=== PATIENT | male | born 1965 | race Caucasian/White ===

== ENCOUNTER 2018-01-25 12:24 | Emergency (ER) | payer BC ==
[2018-01-25 12:56] VITALS: BP 143/99
--- NOTE | 2018-01-25 13:06 | UC ---
Throat Pain/Nasal [place] HPI - HPI Summary HPI Summary: Patient urgent care today with chief complaint of sinus allergy symptoms. Patient has had a long history of allergies decided last year not continue his allergy shots. In years past he's needed Medrol Dosepak to conquer worsening allergies this time year. Patient is taking Claritin as needed does not have a current prescription for Flonase and is not using any Zaditor or Patanol for eyes. - History of Current Complaint Hx Obtained From: Patient Onset/Duration: Gradual Onset, Lasting Weeks - 2 Pain Intensity: 8 Pain Scale Used: 0-10 Numeric Cough: None Associated Signs & Symptoms: Positive: Sinus Discomfort, Nasal Discharge Related History: Seasonal Allergies <Josey Rutledge - Last Filed: 01/25/18 13:13> <Jessica Juarez - Last Filed: 01/27/18 07:28> - History of Current Complaint Chief Complaint: UCGeneralIllness Stated Complaint: ALLERGIES Time Seen by Provider: 01/25/18 12:53 - Allergies/Home Medications Allergies/Adverse Reactions: Allergies Allergy/AdvReac Type Severity Reaction Status Date / Time environmental Allergy Eyes Uncoded 01/25/18 12:54 Itchy/Swollen/Red/Watery PMH/Surg Hx/FS Hx/Imm Hx Previously Healthy: No GI/ History: Gastroesophageal Reflux - Surgical History Surgical History: Yes Surgery Procedure, Year, and Place: left knee 2003- Dr. Romero. RIGHT HAND SX - Family History Known Family History: Positive: None - Social History Occupation: Employed Full-time Lives: With Family Alcohol Use: None Substance Use Type: None Smoking Status (MU): Never Smoked Tobacco <Josey Rutledge - Last Filed: 01/25/18 13:13> Review of Systems Constitutional: Negative Skin: Negative Eyes: Drainage, Eye Redness ENT: Nasal Discharge, Sinus Congestion, Sinus Pain/Tenderness Respiratory: Negative Cardiovascular: Negative Gastrointestinal: Negative Genitourinary: Negative Motor: Negative Neurovascular: Negative Musculoskeletal: Negative Neurological: Negative Psychological: Negative Is Patient Immunocompromised?: No All Other Systems Reviewed And Are Negative: Yes <Josey Rutledge - Last Filed: 01/25/18 13:13> Physical Exam Triage Information Reviewed: Yes Appearance: No Pain Distress, Well-Nourished, Ill-Appearing - mild Vital Signs: Initial Vital Signs Temp 98.1 F 06/09/18 12:48 Pulse 108 01/25/18 12:48 Resp 18 01/25/18 12:48 BP 143/99 01/25/18 12:48 Pulse Ox 100 01/25/18 12:48 Vital Signs Reviewed: Yes Eye Exam: Normal Eyes: Positive: Conjunctiva Clear ENT Exam: Normal ENT: Positive: Normal ENT inspection, Hearing grossly normal, Pharynx normal, Nasal congestion, Nasal drainage, TMs normal, Sinus tenderness, Uvula midline. Negative: Tonsillar swelling, Tonsillar exudate, Trismus, Muffled voice, Hoarse voice Dental Exam: Normal Neck exam: Normal Neck: Positive: Supple, Nontender Respiratory Exam: Normal Respiratory: Positive: Chest non-tender, Lungs clear, Normal breath sounds, No respiratory distress, No accessory muscle use Cardiovascular Exam: Normal Cardiovascular: Positive: RRR, No Murmur, Pulses Normal, Brisk Capillary Refill Musculoskeletal Exam: Normal Musculoskeletal: Positive: Strength Intact, ROM Intact, No Edema Neurological Exam: Normal Neurological: Positive: Alert, Muscle Tone Normal Psychological Exam: Normal Skin Exam: Normal <Josey Rutledge - Last Filed: 01/25/18 13:13> Vital Signs: Initial Vital Signs Temp 98.1 F 01/25/18 12:48 Pulse 108 01/25/18 12:48 Resp 18 01/25/18 12:48 BP 143/99 01/25/18 12:48 Pulse Ox 100 01/25/18 12:48 <Jessica Juarez - Last Filed: 01/27/18 07:28> Throat Pain/Nasal Course/Dx - Course Assessment/Plan: Education provided to patient regarding why Medrol Dosepak is not a good first line treatment for environmental allergies. 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 - Differential Dx/Diagnosis Provider Diagnoses: Environmental allergies, allergic conjuctivitis, elevated blood pressure in poor control <Josey Rutledge - Last Filed: 01/25/18 13:13> Discharge - Sign-Out/Discharge Documenting (check all that apply): Discharge/Admit/Transfer - Billing Disposition and Condition Condition: STABLE Disposition: Home <Josey Rutledge - Last Filed: 01/25/18 13:13> - Billing Disposition and Condition Condition: STABLE Disposition: Home <Jessica Juarez - Last Filed: 01/27/18 07:28> - Discharge Plan Condition: Stable Disposition: HOME Prescriptions: Fluticasone NASAL SPRAY 50MCG* [Flonase NASAL SPRAY 50MCG*] 2 spray BOTH NARES DAILY #1 btl Ketotifen Fumarate [Zaditor] 0.025 % OP BID PRN #1 georgina PRN Reason: allergic eye symptoms Patient Education Materials: How to Use Eye Drops (ED), Allergic Rhinitis (ED) , Conjunctivitis (ED), How to Use Nasal [place] (ED), Postnasal Drip (DC) Referrals: Chika Watson MD [Primary Care Provider] - 2 Weeks Attestation Statement User Type: Provider <Jessica Juarez - Last Filed: 01/27/18 07:28>
== END 2018-01-25 13:20 | disposition home or self-care (01) ==
LOC: UCCORT 12:24
DX: J30.2 Other seasonal allergic rhinitis (principal); H10.10 Acute atopic conjunctivitis, unspecified eye; R03.0 Elevated blood-pressure reading, without diagnosis of hypertension
CPT/HCPCS: 99212; G0463

== ENCOUNTER 2020-04-01 12:45 | Observation (INO) ==
[~2020-04-01 12:45] MED LIST: Buffered Lidocaine 1% SYRIN 1 ml INTRADERM ONE; Lactated Ringers 1000 ml BAG 1,000 ML IV SCH
[2020-04-01] MEDS ORDERED: ceFAZolin 2 GM PREMIX 2 GM/50 ML BAG ONE (12:59)
[2020-04-01] MEDS ORDERED: Buffered Lidocaine 1% SYRIN 1 ml INTRADERM ONE (12:59)
[2020-04-01] MEDS ORDERED: Midazolam 5 mg/5 ml VIAL 1 mg/ml 5 ml VIAL (5 mg) ONE (13:07)
[2020-04-01] MEDS ORDERED: fentaNYL 100 mcg/2 ml 50 MCG/ML VIAL ONE ×2 (13:07→14:41)
[2020-04-01] MEDS ORDERED: Propofol 10 MG/ML 20 ML BTL ONE (13:11)
[2020-04-01] MEDS ORDERED: Lidocaine 2% PF 5 ML VIAL ONE (13:11)
[2020-04-01] MEDS ORDERED: HYDROmorphone 1 MG/1 ML SYRINGE IV PRN (14:21)
[2020-04-01] MEDS ORDERED: Naloxone 0.4 mg VIAL 0.4 mg/ml 1 ml VIAL IV PRN (14:21)
[2020-04-01] MEDS ORDERED: Prochlorperazine 5 mg/ml 2 ml VIAL (10 mg) IV PRN (14:21)
[2020-04-01] MEDS ORDERED: Propofol 10 mg/ml 100 ML BTL 100 ML ONE (14:37)
[2020-04-01] MEDS ORDERED: ROPIVACAINE 5 MG/ML 30 ML BTL (0.5%) ONE ×3 (14:41→15:19)
[2020-04-01] MEDS ORDERED: Bupivacaine 0.5% SDV PF 30ML VIAL ONE ×2 (15:20→15:42)
[2020-04-01] MEDS ORDERED: Magnesium Hydroxide LIQ 30 ML UDC PO PRN (16:36)
[2020-04-01] MEDS ORDERED: Lactulose 30 ml UDC PO PRN (16:36)
[2020-04-01] MEDS ORDERED: Ondansetron ODT 4 mg TAB 4 MG TAB PO PRN (16:36)
[2020-04-01] MEDS ORDERED: Ondansetron 4 mg VIAL 2 MG/ML 2 ml VIAL IV PRN (16:36)
[2020-04-01] MEDS ORDERED: oxyCODONE/Acetamin 5/325 mg TAB PO PRN (16:36)
[2020-04-01] MEDS ORDERED: Morphine 2 MG/ML SYRINGE IV PRN (16:36)
[2020-04-01] MEDS ORDERED: diPHENhydraMINE 25 mg TAB PO PRN (16:36)
[2020-04-01] MEDS: Lactated Ringers 1000 ml BAG 1,000 ML IV SCH (20:04)
[2020-04-01] MEDS: Magnesium Hydroxide LIQ 30 ML UDC PO SCH (21:04)
[2020-04-01] MEDS: oxyCODONE/Acetamin 5/325 mg TAB PO PRN (21:04)
[2020-04-01] MEDS: ceFAZolin 1 GM ADVAN 1 GM in NS 0.9% 50 ML 50 ML IVPB SCH (23:08)
[2020-04-02] MEDS: oxyCODONE/Acetamin 5/325 mg TAB PO PRN ×4 (00:34→15:09)
[2020-04-02] MEDS: Lactated Ringers 1000 ml BAG 1,000 ML IV SCH (06:16)
[2020-04-02] MEDS: ceFAZolin 1 GM ADVAN 1 GM in NS 0.9% 50 ML 50 ML IVPB SCH ×2 (07:51→15:09)
[2020-04-02] MEDS ORDERED: BENAZEPRIL 5 MG PO SCH (09:00)
[2020-04-02] MEDS ORDERED: Vitamin THERAPEUTIC TAB PO SCH (09:00)
[2020-04-02] MEDS: Magnesium Hydroxide LIQ 30 ML UDC PO SCH (09:46)
[2020-04-02 11:37] VITALS: BP 138/87
[2020-04-02 11:39] LABS: Hematocrit 40 % (42-52); Hemoglobin 14.1 g/dL (14.0-18.0); Mean Platelet Volume 7.6 fL (7.4-10.4); Platelet Count 248 10^3/uL (150-450)
[2020-04-02 12:01] LABS: BUN/Creatinine Ratio 11.3 (8-20); Calcium 8.7 mg/dL (8.6-10.3); Potassium 3.6 mmol/L (3.5-5.0)
== END 2020-04-02 15:45 | disposition home or self-care (01) ==
LOC: AA 12:45 → INTOOBSV 12:45 → SSU 16:36
PROVIDERS: ADMIT Orthopaedic Surgery Adult Reconstructive Orthopaedic Surgery; ATTEND Orthopaedic Surgery Adult Reconstructive Orthopaedic Surgery